=== PATIENT | male | born 1980 | race Caucasian/White ===

== ENCOUNTER 2017-03-20 10:32 | Emergency (ER) | payer BC, OTHER ==
--- NOTE | 2017-03-20 10:43 | EDM.PDOC ---
ED HPI GENERAL MEDICAL PROBLEM - General Stated Complaint: UNK Time Seen by Provider: 03/20/17 10:42 - History of Present Illness INITIAL COMMENTS - FREE TEXT/NARRATIVE: HISTORY AND PHYSICAL: History of present illness: Patient 36-year-old white male presents via paramedics unresponsive at today recalled for altered mental status and presumptive overdose blood sugar in field was greater than 100 Narcan 8 mg total was without response there is no evidence of trauma or history of such. Upon arrival patient remains unresponsive no gag reflex. Review of systems: As per history of present illness and below otherwise all systems reviewed and negative. Past medical history: As per history of present illness and as reviewed below otherwise noncontributory. Surgical history: As per history of present illness and as reviewed below otherwise noncontributory. Social history: No reported history of drug or alcohol abuse. Family history: As per history of present illness and as reviewed below otherwise noncontributory. Physical exam: HEENT: Atraumatic, normocephalic, pupils 1-2 mm and sluggish, negative for conjunctival pallor or scleral icterus, mucous membranes moist, throat clear, neck supple, nontender, trachea midline. Lungs: Clear to auscultation, breath sounds equal bilaterally, chest nontender. Heart: S1S2, regular, negative for clicks, rubs, or JVD. Abdomen: Soft, nondistended, nontender. Negative for masses or hepatosplenomegaly. Negative for costovertebral tenderness. Pelvis: Stable nontender. Genitourinary: Deferred. Rectal: Deferred. Extremities: Atraumatic, negative for cords or calf pain. Neurovascular unremarkable. Neuro: Unresponsive with absent gag reflex unresponsive to painful stimuli Diagnostics: CBC CMP troponin PT/INR UA urine drug screen EtOH chest x-ray EKG Therapeutics: IV O2 monitor intubation with 8-0 ET tube by a rapid sequence intubation Impression: [#1 altered mental status #2 rule out poly-overdose Definitive disposition and diagnosis as appropriate pending reevaluation and review of above. ED ROS GENERAL - Review of Systems Review Of Systems: ROS reveals no pertinent complaints other than HPI. ED EXAM, GENERAL - Physical Exam Exam: See Below (See dictation) Departure - Departure Time of Disposition: 10:42 Disposition: DC/Tfer to Other Condition: Serious Clinical Impression: Altered mental status, Polysubstance abuse - Discharge Information
[2017-03-20] MEDS ORDERED: Sodium Chloride 0.9% 10 ML Syringe FLUSH PRN (10:45)
[2017-03-20] MEDS ORDERED: Sodium Chloride 0.9% 2.5 ML Syringe FLUSH PRN (10:45)
[2017-03-20] MEDS ORDERED: Sodium Chloride 0.9% 1,000 ML IV SCH (10:45)
[2017-03-20] MEDS ORDERED: Rocuronium 50 MG/5 ML Vial IVPUSH ONE (11:13)
[2017-03-20] MEDS ORDERED: Succinylcholine 200 MG/10 ML MDV IV ONE ×2 (11:13→12:30)
[2017-03-20 11:36] LABS: CHLORIDE,CL 103 mmol/L (98-110); SODIUM,NA 140 mmol/L (136-146)
[2017-03-20] MEDS ORDERED: Rocuronium 50 MG/5 ML Vial IV ONE (12:30)
[2017-03-20 15:32] VITALS: BP 138/99
--- NOTE | 2017-03-21 12:10 | CR ---
EXAM DATE: 03/20/17 PATIENT'S AGE: 36 Patient: ANDRES COSTA Facility: [place], [place] Site . Site : [id number] Study: XRay Chest [id number]/25/2017 10:50:51 AM Ordering Physician: Bala Nguyen Final Report: INDICATION: Intubation. Followup. TECHNIQUE: AP portable chest. COMPARISON: None. FINDINGS: Endotracheal tube tip 4 cm above the therese. Enteric tube coiled upon itself in the proximal stomach. No pneumothorax. Questionable minimal infiltrate or atelectasis left lung base. IMPRESSION: Appliances are in satisfactory position. No pneumothorax. Questionable minor infiltrate or atelectasis left lung base. Dictated by Sunil Jimenez MD @ 03/20/2017 10:52:19 AM Dictated by: Sunil Jimenez MD @ 03/20/2017 10:52:25 (Electronic Signature) Report Signed by Proxy. LUCIANA
== END 2017-03-20 11:44 | disposition other institution (70) ==
LOC: MW.ED 10:32
DX: R41.82 Altered mental status, unspecified (principal); F19.10 Other psychoactive substance abuse, uncomplicated
CPT/HCPCS: 36415; 43753; 71010; 80053; 80305; 81001; 82140; 82375; 84484; 85025; 85610; 93005; 96361; 96374; 96375; 99291; 99292; G0480; J0330; 31500; 99285